=== PATIENT | male | born 1975 | race Two or more races ===

== ENCOUNTER 2018-11-24 09:24 | Emergency (ER) | payer SELFPAY ==
[~2018-11-24] VITALS: Ht 172.7 cm; Wt 79.9 kg
[2018-11-24 09:27] VITALS: BP 150/84
--- NOTE | 2018-11-24 09:41 | NUR ---
PT TO ROOM 4 W/ C/O RLE PAIN. 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 DR. PERALTA (WEIGHT TESTER) SAID HE NEEDED SURGERY AND NEEDED TO GO TO [place]. PT DOES NOT HAVE INSURANCE SO CAME TO ED INSTEAD. PT RESTING ON GURNEY. NADN. PAIN 0/10.
--- NOTE | 2018-11-24 10:25 | NUR ---
PT CHART REVIEWED AND PLACED FOR RECHECK.
== END 2018-11-24 12:43 | disposition home or self-care (01) ==
LOC: ED 11:22
DX: S92.511A Displaced fracture of proximal phalanx of right lesser toe(s), initial encounter for closed fracture (principal); E78.5 Hyperlipidemia, unspecified; W20.8XXA Other cause of strike by thrown, projected or falling object, initial encounter; Y93.89 Activity, other specified; Y92.009 Unspecified place in unspecified non-institutional (private) residence as the place of occurrence of the external cause; Y99.8 Other external cause status
CPT/HCPCS: 29515; 99284